=== PATIENT | male | born 1995 | race Caucasian/White ===

== ENCOUNTER 2023-04-07 10:40 | Emergency (ER) | payer SELFPAY ==
[2023-04-07 10:40] VITALS: BP 133/83; PULSE 74; RESP 14; TEMP 36.3; O2SAT 99
--- NOTE | 2023-04-07 10:54 | ED.WOUNDLAC ---
HPI - Wound/Laceration General Chief Complaint: Wound/Laceration Stated Complaint: hand laceration Time Seen by Provider: 04/07/23 10:54 Source: patient Mode of arrival: ambulatory Limitations: no limitations History of Present Illness HPI narrative: 28-year-old male with no significant past medical history was at work when he hit the back of her right hand against a metal. He presents with -- 6 cm laceration on the back of right hand over MP joints. Profuse bleeding. Patient does not remember having taken a tetanus shot in the past 5 years. No other injuries. Onset (ago): minute(s) ( 30 minutes ago) Location: other ( back of right hand) Body four view annotation: 1. 6 cm laceration on the back of the right hand close to the 4/[address]: work Patient tetanus UTD: No Context: accidental Associated symptoms: none Related Data Allergies Allergy/AdvReac Type Severity Reaction Status Date / Time No Known Allergies Allergy Verified 04/07/23 11:01 Review of Systems Review of Systems: All systems reviewed & are unremarkable except as noted in HPI and below Constitutional: Constitutional: Reports as per HPI and Reports no additional constitutional complaints Eyes: Eyes: Reports as per HPI and Reports no additional eye complaints ENT: Reports system reviewed and no additional complaints, except as documented and Reports as per HPI Cardiovascular: Cardiovascular: Reports as per HPI and Reports no additional cardiovascular complaints Respiratory: Respiratory: Reports as per HPI and Reports no additional respiratory complaints Gastrointestinal: Gastrointestinal: Reports as per HPI and Reports no additional gastrointestinal complaints Musculoskeletal: Musculoskeletal: Reports no additional musculoskeletal complaints and Reports as per HPI Comments: No bone pain on the right hand. Integumentary/Breasts: Skin/Breast: Reports system reviewed and no additional complaints, except as docu and Reports as per HPI Comments: 6 cm laceration on the back of the right hand. Neurologic: Reports system reviewed and no additional complaints, except as documented and Reports as per HPI Comments: Sensation distal to the laceration is intact. Psychiatric: Psychiatric: Reports no additional psychiatric complaints and Reports as per HPI Endocrine: Endocrine: Reports no additional endocrine complaints and Reports as per HPI Hematologic/Lymphatic: Hematologic/Lymphatic: Reports no additional hematologic/lymphatic complaints and Reports as per HPI Allergic/Immunologic: Allergic/Immunologic: Reports no additional allergic/immunologic complaints and Reports as per HPI Exam Const: General: healthy appearing and no acute distress Nutritional Appearance: well nourished Orientation/consciousness: patient oriented x3 Limitations: no limitations HENMT: Head: normal to inspection Ears: external ears normal Face/Nose/Sinus: Normal external nose present Face and sinus: normal facial exam Mouth: Yes Normal oral and palatal mucosa present Throat: posterior oropharynx normal Eyes: Conjunctivae: conjunctivae normal Pupils: Equal, round and reactive pupils present EOM: EOMs intact bilaterally Direct Ophthalmoscopy: no photophobia Neck: Neck: normal visual inspection, no lymphadenopathy and no meningeal signs Chest: Chest palpation & inspection: normal inspection of the chest Resp: Effort & Inspection: normal respiratory effort Auscultation: clear to auscultation bilaterally Cardio: Rate: regular rate Rhythm: regular rhythm GI: GI Palp: Yes Soft to palpation Auscultation: normal bowel sounds Other: Tenderness/ rigidity / rebound. Back/Spine/Pelvis: Back: no CVA tenderness Skin: Wounds: wounds noted Other: 6 cm laceration on the back of right hand. The laceration is just proximal to the 4/5 meta carpophalangeal joints. Distal sensation is intact. Mild weakness of the extension of
[2023-04-07 11:02] VITALS: BP 133/83; PULSE 74; RESP 14; TEMP 36.3; O2SAT 99
[2023-04-07] MEDS: LIDOCAINE HCL 1% LOCAL INJ 10 ML VIAL 5 ML INFILTRATE (11:07)
[2023-04-07] MEDS: TETANUS,DIPHTHERIA,AC PERTUSSIS ADULT 0.5 ML (ADACEL) IM (11:08)
[2023-04-07] MEDS: cefTRIAXone 1 GM, LIDOCAINE HCL 1% LOCAL INJ 2.1 ML IM (11:44)
--- NOTE | 2023-04-07 11:48 | PC.NURSE ---
WOUND CLEANED AND REPAIRED PER ERP. DRESSING APPLIED PER TECH. +PMS POST DRESSING.
[2023-04-07 12:03] VITALS: BP 123/70; RESP 18; O2SAT 99
== END 2023-04-07 12:05 | disposition home or self-care (01) ==
PROVIDERS: Emergency Provider Internal Medicine Critical Care Medicine
DX: S61.411A Laceration without foreign body of right hand, initial encounter (principal); Z23 Encounter for immunization; W26.8XXA Contact with other sharp object(s), not elsewhere classified, initial encounter
CPT/HCPCS: 12002; 90471; 90715; 96372; 99283; J0696

== ENCOUNTER 2024-03-18 15:37 | Emergency (ER) | payer OTHER, SELFPAY ==
[2024-03-18 15:59] VITALS: BP 132/81; PULSE 72; RESP 16; TEMP 36.9; O2SAT 100
--- NOTE | 2024-03-18 16:10 | ED.ABDPAIN ---
HPI - Abdominal Pain General Chief Complaint: Abdominal Pain Stated Complaint: Abdominal Pain Time Seen by Provider: 03/18/24 16:11 Source: patient Mode of arrival: ambulatory Limitations: no limitations History of Present Illness HPI narrative: 29-year-old male presents with complaint of left lower abdominal tenderness for 5 days. Reports back and forth between constipation and diarrhea. Denies nausea vomiting. Afebrile. Eating normally, does not make pain worse. Patient states he went to [facility] and was told that they do not take his insurance. Was told that he could come here and be seen for abdominal pain. Stopped at [facility] and was told to come to [facility], that we have a CT scanner. Patient states that he wants a CT scan. All systems reviewed and negative except as noted above. Related Data Allergies Allergy/AdvReac Type Severity Reaction Status Date / Time No Known Allergies Allergy Verified 04/07/23 11:01 Review of Systems Review of Systems: CONSTITUTIONAL: Denies fever, chills, or sweats. EYES: Denies visual changes, redness, or discharge. ENT: Denies rhinorrhea, congestion, sore throat, or otalgia. CARDIOVASCULAR: Denies chest pain, palpitations, or edema. RESPIRATORY: Denies cough or dyspnea. GASTROINTESTINAL: Reports left lower abdominal pain. Denies nausea, vomiting, or diarrhea. GENITOURINARY: Denies dysuria or hematuria. SKIN: Denies rash or itching. MUSCULOSKELETAL: Denies back pain, joint pain, or myalgia. NEUROLOGIC: Denies headache, numbness, or weakness. PSYCHIATRIC: Denies anxiety or depression. All other systems reviewed are negative, except as documented in HPI. PMFSH Comments At time of signature, agree with nursing past medical, surgical, social and family history. There is no relevant family history pertinent to the presenting complaint. Exam Narrative: GENERAL: This is a well-nourished, well-developed patient, in no apparent distress. HEAD: normocephalic, atraumatic. EYES: PERRL. Sclera clear/white. Vision is grossly intact. EARS: External ears normal NOSE: External nose normal NECK: Neck supple, non-tender without lymphadenopathy, masses or thyromegaly. CARDIOVASCULAR: Regular rate and rhythm without murmurs, gallops, or rubs. RESPIRATORY: Clear to auscultation. Breath sounds equal bilaterally. No wheezes, rales, or rhonchi. GASTROINTESTINAL: Abdomen soft, tender left lower quadrant, nondistended. Bowel sounds are active. No hepato-splenomegaly, or palpable masses. No guarding. SKIN: warm, Dry, intact with no suspicious lesions or rash, good texture and turgor. NEURO: awake, alert, and oriented to person, place and time. There were no obvious focal neurologic abnormalities. EXTREMITIES: No joint tenderness, effusion, or edema noted. Course Course Level of Care: [facility] Visit Vital Signs Vital signs: Vital Signs Temperature 36.9 C 03/18/24 15:59 Pulse Rate 72 03/18/24 15:59 Respiratory Rate 16 03/18/24 15:59 Blood Pressure 132/81 03/18/24 15:59 Pulse Oximetry 100 03/18/24 15:59 Oxygen Delivery Room Air 03/18/24 15:59 Temperature 36.9 C 03/18/24 15:59 Pulse Rate 72 03/18/24 15:59 Respiratory Rate 16 03/18/24 15:59 Blood Pressure 132/81 03/18/24 15:59 Pulse Oximetry 100 03/18/24 15:59 Oxygen Delivery Room Air 03/18/24 15:59 Reviewed MDM - Abdominal Pain MDM Narrative Medical decision making narrative: Tenderness to left lower quadrant. Patient reports abdominal pain for 5 days. Patient is requesting a abdominal CT. Was told by a healthcare facility that we have a CT scanner at [facility]. Recommended patient transfer to ER for further evaluation of his abdominal pain. He refused transfer at this time and states he may go tomorrow. Patient nontoxic. Patient is aware of diagnosis, understands and agrees to treatment plan. Anticipatory guidance given. Patient agrees to follow
== END 2024-03-18 16:20 | disposition left against medical advice (07) ==
PROVIDERS: Emergency Provider Nurse Practitioner Family
DX: R10.32 Left lower quadrant pain (principal)
CPT/HCPCS: 99211; G0463

== ENCOUNTER 2024-03-19 11:40 | Emergency (ER) | payer OTHER, SELFPAY ==
[2024-03-19 11:40] VITALS: BP 142/88; PULSE 85; RESP 14; TEMP 36.3; O2SAT 100
--- NOTE | 2024-03-19 11:55 | ED.ABDPAIN ---
HPI - Abdominal Pain General Chief Complaint: Abdominal Pain Stated Complaint: abdominal pain Time Seen by Provider: 03/19/24 11:54 Source: patient Mode of arrival: ambulatory Limitations: no limitations History of Present Illness HPI narrative: 29 old male presents to the with a 2 week history of -- left lower quadrant abdominal which is intermittent. at times the pain is present in bilateral flanks. Comes on and off without any specific reason. Pain usually lasts a few minutes with decrease in the intensity of pain. No nausea/ vomiting. Regular bowel movements. No fever or chills. Occasional alcohol use. No recent NSAIDs use. No prior surgeries. MD elicited complaint: abdominal pain Onset (ago): week(s) ( Two weeks) Pain Consistency: intermittent Location: LLQ Severity: moderate Quality: aching Radiation: none Migration to: no migration Exacerbating factors: nothing Relieving factors: nothing Associated symptoms: denies other symptoms Related Data Home Medications Medication Instructions Recorded Confirmed No Home Medications 03/19/24 03/19/24 Allergies Allergy/AdvReac Type Severity Reaction Status Date / Time No Known Allergies Allergy Verified 03/19/24 11:53 Review of Systems Review of Systems: All systems reviewed & are unremarkable except as noted in HPI and below Constitutional: Constitutional: Reports as per HPI and Reports no additional constitutional complaints Eyes: Eyes: Reports as per HPI and Reports no additional eye complaints ENT: Reports system reviewed and no additional complaints, except as documented and Reports as per HPI Cardiovascular: Cardiovascular: Reports as per HPI and Reports no additional cardiovascular complaints Gastrointestinal: Gastrointestinal: Reports as per HPI, Reports no additional gastrointestinal complaints and Reports abdominal pain Comments: left lower quadrant abdominal pain Genitourinary: Genitourinary: Reports no additional male genitourinary complaints and Reports as per HPI Musculoskeletal: Musculoskeletal: Reports no additional musculoskeletal complaints and Reports as per HPI Integumentary/Breasts: Skin/Breast: Reports system reviewed and no additional complaints, except as docu and Reports as per HPI Neurologic: Reports system reviewed and no additional complaints, except as documented and Reports as per HPI Psychiatric: Psychiatric: Reports no additional psychiatric complaints and Reports as per HPI Endocrine: Endocrine: Reports no additional endocrine complaints and Reports as per HPI Hematologic/Lymphatic: Hematologic/Lymphatic: Reports no additional hematologic/lymphatic complaints and Reports as per HPI Allergic/Immunologic: Allergic/Immunologic: Reports no additional allergic/immunologic complaints and Reports as per HPI Exam Narrative: Afebrile. Const: General: healthy appearing and no acute distress Nutritional Appearance: well nourished Orientation/consciousness: patient oriented x3 Limitations: no limitations HENMT: Head: normal to inspection Ears: external ears normal Face/Nose/Sinus: Normal external nose present Face and sinus: normal facial exam Mouth: Yes Normal oral and palatal mucosa present Throat: posterior oropharynx normal Eyes: Conjunctivae: conjunctivae normal Pupils: Equal, round and reactive pupils present EOM: EOMs intact bilaterally Direct Ophthalmoscopy: no photophobia Neck: Neck: normal visual inspection, no lymphadenopathy and no meningeal signs Chest: Chest palpation & inspection: normal inspection of the chest Resp: Effort & Inspection: normal respiratory effort Auscultation: clear to auscultation bilaterally Cardio: Rate: regular rate Rhythm: regular rhythm GI: GI Palp: Yes Soft to palpation Auscultation: normal bowel sounds Other: No tenderness/rigidity / rebound. : General: Yes no CVA tenderness Back/Spine/Pelvis: Back: no CVA tenderness Skin: General ski
[2024-03-19 12:23] LABS: Basophils Absolute Auto 0.06 K/mm3 (0.00-0.10); Basophils Percent Auto 0.7 % (0.0-1.0); Eosinophils Absolute Auto 0.18 K/mm3 (0.02-0.50); Eosinophils Percent Auto 2.2 % (1.0-6.0); Hematocrit 44.3 % (40.0-54.0); Hemoglobin 14.8 g/dL (14.0-18.0); Immature Granulocyte Absolute 0.02 K/mm3 (0.00-0.00); Immature Granulocyte Percent A 0.2 % (0.0-0.0); Lymphocytes Absolute Auto 2.09 K/mm3 (1.10-4.50); Lymphocytes Percent Auto 25.9 % (18.0-42.0); Mean Corpuscular HGB Conc 33.4 g/dL (32-36); Mean Corpuscular Hemoglobin 28.8 pg (27.0-31.0); Mean Corpuscular Volume 86.2 fL (78.0-102.0); Mean Platelet Volume 8.7 fl (8.7-11.0); Monocytes Absolute Auto 0.41 K/mm3 (0.10-0.90); Monocytes Percent Auto 5.1 % (2.0-11.0); Neutrophils Absolute Auto 5.32 K/mm3 (1.70-7.20); Neutrophils Percent Auto 65.9 % (50.0-70.0); Platelet Count Result 249 K/mm3 (150-420); Red Blood Count 5.14 M/mm3 (4.70-6.10); Red Cell Distribution Width 11.7 % (11.6-14.4); White Blood Count 8.1 K/mm3 (4.8-10.8)
[2024-03-19 12:46] LABS: Alanine Aminotransferase 65 U/L (16-63); Albumin Level 4.2 g/dL (3.4-5.0); Alkaline Phosphatase 79 U/L (46-116); Anion Gap 10 mmol/L (4-12); Appearance Urine Clear (Clear); Aspartate Amino Transferase 30 U/L (15-37); Bilirubin Urine Negative (Negative); Bilirubin,Total 0.9 mg/dL (0.00-1.00); Blood Urea Nitrogen 11 mg/dL (7-18); Blood Urine Negative (Negative); Calcium 9.2 mg/dL (8.5-10.1); Carbon Dioxide 29 mmol/L (21-32); Chloride 102 mmol/L (98-108); Color Urine Light Yellow (Yellow); Estimated CRCL calculation 115 ml/min; Estimated Glomerular Filt Rate > 60; Glucose 90 mg/dL (70-99); Glucose Urine UA Negative (Negative); Ketones Urine Negative (Negative); Leukocyte Esterase Ur Negative LEU/UL (Negative); Lipase 41 U/L (16-77); Nitrate Urine Negative (Negative); Osmolality Calculated 291 mOsm/kg (285-295); Potassium 4.2 mmol/L (3.5-5.1); Protein Urine Negative (Negative); Sodium 141 mmol/L (136-145); Specific Grav Ur <= 1.005 (1.010-1.020); Total Protein 7.7 g/dL (6.4-8.2); Urobilinogen Urine 0.2 mg/dL (0.2-1.0)
[2024-03-19 12:49] LABS: Add Urine Microscopic? NO
[2024-03-19 12:51] LABS: Lactic Acid Reflex 0.7 mmol/L (0.4-2.0)
[2024-03-19 13:35] VITALS: BP 118/62; PULSE 63; RESP 14; TEMP 36.4; O2SAT 100
== END 2024-03-19 13:35 | disposition home or self-care (01) ==
PROVIDERS: Emergency Provider Internal Medicine Critical Care Medicine
DX: R10.32 Left lower quadrant pain (principal)
CPT/HCPCS: 36415; 80053; 81003; 83605; 83690; 85025; 99283

== ENCOUNTER 2024-03-23 16:25 | Emergency (ER) | payer OTHER, SELFPAY ==
--- NOTE | ~2024-03-23 | CT_ITS ---
EXAMINATION: CT abdomen pelvis wo con DATE: 03/23/2024 16:43 INDICATION: Left lower quadrant abdominal pain. TECHNIQUE: Computed tomography (CT) of the abdomen and pelvis was performed without intravenous contr ast. Automated exposure control and iterative reconstruction technique were employed. The dose-length product was 336.64 mGy-cm. COMPARISON: None. FINDINGS: The visualized portions of the lung bases demonstrate minimal atelectasis. No pleural effus ion. The heart size is normal. No pericardial effusion. There is diffuse hepatic steatosis. The gallb ladder, spleen, pancreas, adrenal glands, and kidneys are normal. There is no urolithiasis. There are no dilated loops of bowel. The appendix is normal. There are no pathologically enlarged lymph nodes. The paranasal sinuses are clear. There is mild lumbar spondylosis. IMPRESSION: 1. No etiology for the patient's symptoms. Reviewed, dictated and finalized at location A.
[2024-03-23 16:27] VITALS: BP 141/82; PULSE 80; RESP 16; TEMP 36.8; O2SAT 100
--- NOTE | 2024-03-23 16:40 | ED.ABDPAIN ---
HPI - Abdominal Pain General Chief Complaint: Abdominal Pain Stated Complaint: abdominal pain Time Seen by Provider: 03/23/24 16:28 History of Present Illness HPI narrative: 29-year-old male no medical problems presents to the emergency room for evaluation of lower abdominal pain for 1 week. Patient states over the past couple of days he has had 1 small hard bowel movement a day. Patient has attempted MiraLax multiple days, stool softener, and a colon cleanse with no improvement of the symptoms. Patient denies fever. Describes the pain as a bloating sensation that is not relieved with a bowel movement. Denies any dysuria. No abdominal surgeries. Denies nausea, vomiting or diarrhea. Related Data Home Medications Medication Instructions Recorded Confirmed No Home Medications 03/19/24 03/19/24 Allergies Allergy/AdvReac Type Severity Reaction Status Date / Time No Known Allergies Allergy Verified 03/23/24 16:54 Review of Systems Review of Systems: ROS remarkable as stated in the HPI Exam Narrative: GENERAL: Well-appearing, well-nourished, no physical limitations, and in no acute distress. HEAD: Normocephalic, atraumatic. EYES: Conjunctivae normal, PERRLA and EOMI. CHEST: Clear to auscultation. No respiratory distress. No wheezes rales or rhonchi. HEART: Regular rate and rhythm. No murmur heard. Normal peripheral pulses. ABDOMEN: Soft, of lower quadrant/lower abdominal tenderness, nondistended, normal active bowel sounds. Negative heel strike. Negative obturator and psoas signs BACK: No CVA tenderness EXTREMITIES: Normal range of motion. No edema. No clubbing or cyanosis SKIN: Warm, dry, no rash. No noted wounds NEURO: No focal deficits. Alert and oriented x3. MAEW. CN's II-XI intact bilaterally, normal gait PSYCH: Cooperative. Normal mood and affect. Course Vital Signs Vital signs: Vital Signs Temperature 36.8 C 03/23/24 16: Pulse Rate 80 03/23/24 16: Respiratory Rate 16 03/23/24 16:27 Blood Pressure 141/82 H 03/23/24 16: Pulse Oximetry 100 03/23/24 16: Temperature 36.8 C 03/23/24 16: Pulse Rate 80 03/23/24 16:27 Respiratory Rate 16 03/23/24 16:27 Blood Pressure 141/82 H 03/23/24 16:27 Pulse Oximetry 100 03/23/24 16:27 Discharge Plan Discharge Clinical Impression: Abdominal pain Patient Disposition: Home, Self-Care Condition: Stable Instructions: Antibiotic Form, Constipation (ED), Abdominal Pain (ED) Prescriptions: No Action No Home Medications Follow-up/Referrals: Sergo Torres MD [Physician] - UNKNOWN,DOCTOR [Primary Care Provider] - Time of Disposition: 17:06
[2024-03-23 16:49] LABS: Basophils Absolute Auto 0.1 K/mm3 (0.0-0.1); Basophils Percent Auto 0.8 % (0.2-1.2); Eosinophils Absolute Auto 0.4 K/mm3 (0-0.3); Eosinophils Percent Auto 4.5 % (0-4.4); Hematocrit 43.1 % (42.0-52.0); Hemoglobin 14.8 g/dL (14.0-18.0); Immature Granulocyte Absolute 0.02 K/mm3 (0.00-0.031); Immature Granulocyte Percent A 0.2 % (0-0.5); Lymphocytes Absolute Auto 2.86 K/mm3 (0.9-3.2); Lymphocytes Percent Auto 33.7 % (18.3-44.2); Mean Corpuscular HGB Conc 34.3 g/dl (32-36); Mean Corpuscular Hemoglobin 29.9 pg (26-34); Mean Corpuscular Volume 87.1 fl (80-100); Mean Platelet Volume 9.1 fl (7.4-10.4); Monocytes Absolute Auto 0.6 K/mm3 (0.1-0.6); Monocytes Percent Auto 6.9 % (2.6-8.5); Neutrophils Absolute Auto 4.6 K/mm3 (1.3-6.7); Neutrophils Percent Auto 53.9 % (45.5-73.1); Platelet Count Result 260 k/mm3 (150-375); Red Blood Count 4.95 M/mm3 (4.6-6.20); White Blood Count 8.5 K/mm3 (4.5-10.0)
[2024-03-23] MEDS: SODIUM CHLORIDE 0.9% IV 1,000 ML 999 ML IV CONT (16:55)
[2024-03-23 17:01] LABS: Alanine Aminotransferase 38 U/L (6-50); Albumin Level 4.9 g/dL (3.5-5.1); Alkaline Phosphatase 66 U/L (38-126); Anion Gap 7 mmol/L (4-12); Aspartate Amino Transferase 32 U/L (17-59); Blood Urea Nitrogen 15 mg/dL (9-20); Calcium 9.4 mg/dL (8.4-10.2); Carbon Dioxide 28 mmol/L (22-30); Chloride 103 mmol/L (98-107); Estimated CRCL calculation 122 ml/min; Estimated Glomerular Filt Rate > 60; Glucose 72 mg/dL (65-110); Lipase 142 U/L (23-300); Potassium 3.9 mmol/L (3.4-5.0); Sodium 138 mmol/L (137-145)
[2024-03-23 17:04] LABS: Appearance Urine Cloudy (Clear); Bacteria Urine None Seen /hpf; Bilirubin Urine Negative (Negative); Blood Urine Negative (Negative); Color Urine Yellow (Yellow); Glucose Urine UA Negative (Negative); Ketones Urine Trace mg/dL (Negative); Leukocyte Esterase Ur Negative LEU/UL (Negative); Nitrate Urine Negative (Negative); Non Pathogenic Casts 0-2; Protein Urine Negative (Negative); RBC Urine 0-2 /hpf (0-2); Specific Grav Ur 1.024 (1.001-1.035); Squamous Epithelial Cell Urine None Seen /hpf (Few); WBC Urine 0-5 /hpf (0-3); pH Urine 6.5 (5.0-9.0)
[2024-03-23 17:06] LABS: Add Urine Microscopic? YES
[2024-03-23 17:36] VITALS: BP 121/76; PULSE 80; RESP 16; O2SAT 98
== END 2024-03-23 17:39 | disposition home or self-care (01) ==
LOC: ANHED 17:14
PROVIDERS: Emergency Provider Nurse Practitioner Family
DX: R10.30 Lower abdominal pain, unspecified (principal)
CPT/HCPCS: 36415; 74176; 80053; 81001; 83690; 85025; 96360; 99284; J7030